=== PATIENT | female | born 1970 | race Caucasian/White ===

== ENCOUNTER 2018-09-25 21:46 | Emergency (ER) | payer OTHER ==
--- NOTE | 2018-09-25 22:19 | ED Physician Documentation ---
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 Patient takes magnesium chloride at night for migraine headaches (PRN). Tonight, her prepared a dose for both of them. He used a bulk powder mix that they purchased online. He did not follow the directions on the label but he did use the directions to calculate what he thought was an individual dose (the directions are for making one liter, with 50-100ml per dose). After they both took the magnesium, he recalculated and realized he had prepared an overdose. By his calculations, they each took over 7 grams. However, when the and I recalculate, the dose they each took is actually 9.9 grams. Patient only c/o mild nausea. Review of Systems Eyes: reports: Reviewed and negative Cardiac: reports: Reviewed and negative Respiratory: reports: Reviewed and negative GI: reports: Nausea. 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: No Smoking Status: Never smoker Does the pt drink ETOH?: No Does the pt have substance abuse?: No PD ED PE NORMAL - Vitals Vital signs reviewed: Yes - General General: Alert and oriented X 3, No acute distress, Well developed/nourished - HEENT HEENT: Moist mucous membranes - Cardiac Cardiac: RRR, No murmur - Respiratory Respiratory: No respiratory distress, Clear bilaterally - Abdomen Abdomen: Soft, Non tender - Neuro Neuro: Alert and oriented X 3, it professional 2-12 intact, No motor deficit, No sensory deficit, Normal speech Eye Opening: Spontaneous Motor: Obeys Commands Verbal: Oriented GCS Score: 15 Results - Vitals Vitals: Vital Signs - 24 hr 09/25/18 09/26/18 21:53 00:03 Temperature 37 C 36.6 C Heart Rate 70 60 Respiratory 18 16 Rate Blood Pressure 122/77 111/70 O2 Saturation 97 96 Oxygen O2 Source Room air - Labs Labs: Laboratory Tests 09/25/18 23:15 Sodium 138 Potassium 3.5 Chloride 105 Carbon Dioxide 27 Anion Gap 6.0 BUN 12 Creatinine 1.1 H Estimated GFR (MDRD) 53 L Glucose 111 H Calcium 9.2 Phosphorus 4.5 Magnesium 2.4 PD MEDICAL DECISION MAKING - ED course Complexity details: reviewed results, re-evaluated patient, considered differential, d/w patient, d/w family ED course: Poison control was contacted and they recommend 2-3 hours observation in ED and can discharge if symptoms are limited to mild GI symptoms. After approximately 3 hours ED observation, patient still only has mild nausea and is comfortable with discharge home. She declines antinauseants Departure - Departure Disposition: 01 Home, Self Care Clinical Impression: Accidental overdose Qualifiers: Encounter type: initial encounter Qualified Code(s): T50.901A - Poisoning by unspecified drugs, medicaments and biological substances, accidental (unintentional), initial encounter Condition: Good Instructions: ED Overdose Accidental Follow-Up: LEONEL XIAO MD [Primary Care Provider] - Discharge Date/Time: 09/26/18 00:11
[2018-09-25 23:43] LABS: CALCIUM 9.2 mg/dL (8.5-10.3); CREATININE 1.1 mg/dL (0.4-1.0); MAGNESIUM 2.4 mg/dL (1.7-2.8); PHOSPHORUS 4.5 mg/dL (2.5-4.6)
[2018-09-26 00:03] VITALS: BP 111/70
== END 2018-09-26 00:11 | disposition home or self-care (01) ==
LOC: ED 21:46
DX: T56.891A Toxic effect of other metals, accidental (unintentional), initial encounter (principal); R11.0 Nausea
CPT/HCPCS: 36415; 80048; 83735; 84100; 99283

== ENCOUNTER 2021-08-02 10:43 | Outpatient (CLI) | payer OTHER ==
--- NOTE | 2021-08-02 14:47 | MRI Report ---
PROCEDURE: Cervical Spine W/O INDICATIONS: Cervicalgia TECHNIQUE: Noncontrast sagittal T1 spin echo and T2 fast spin echo, sagittal STIR, foraminal oblique sagittal T2 fast spin echo, and axial gradient echo or T2 fast spin echo through the cervical spine. COMPARISON: None. FINDINGS: Normal cervical vertebral body height and alignment. A T3 vertebral body hemangioma demonstrates incr eased T1 and T2 signal and characteristic vertebral striated pattern. No suspicious focal marrow sign al abnormality or bone marrow edema. Morphology and signal intensity of the cervical cord. There is n o syrinx the unenhanced prevertebral and paraspinous soft tissues are unremarkable in the absence of IV contrast. C2-C3: Normal in appearance. C3-C4: Normal in appearance. C4-C5: Normal in appearance. C5-C6: Normal in appearance. C6-C7: Normal in appearance. C7-T1: Normal in appearance. IMPRESSION: No or spinal canal stenosis, neural foraminal stenosis, or significant degenerative change. Reviewed by: Stephan Thomas MD on 08/02/2021 2:46 PM PST Approved by: Stephan Thomas MD on 08/02/2021 2:46 PM PST Station ID: [id number]
== END 2021-08-02 10:44 | disposition home or self-care (01) ==
LOC: DI 10:43
PROVIDERS: ATTEND Family Medicine
DX: M54.2 Cervicalgia (principal)

== ENCOUNTER 2022-06-18 12:53 | Outpatient (CLI) | payer OTHER ==
--- NOTE | 2022-06-25 10:05 | Mammography Report ---
BILATERAL DIGITAL SCREENING MAMMOGRAM 3D/2D: 06/18/2022 CLINICAL: Routine screening. Comparison is made to exams dated: 01/19/2019 mammogram, 11/04/2017 mammogram, 10/15/2016 mammogram, and 09/06/2015 mammogram - [facility]. There are scattered areas of fibroglandular density in both breasts (category b / 25%-50% glandular t issue). No significant masses, calcifications, or other findings are seen in either breast. There has been no significant interval change. IMPRESSION: NEGATIVE There is no mammographic evidence of malignancy. A 1 year screening mammogram is recommended. Based on the Tyrer Cuzick model (a risk assessment model) the patients lifetime risk is 6.8% and her 10 year risk is 1.8%. According to the ACR, ACS, and NCCN guidelines, an annual breast MRI exam ree g with mammogram is recommended if the patients lifetime risk is 20% or greater. This exam was interpreted at Station ID: [id number]. NOTE: For mammograms, a report in lay terms will be sent to the patient. Approximately 15% of breast malignancies will not be visualized mammographically. In the management of a palpable breast mass, a negative mammogram must not discourage biopsy of a clinically suspicious lesion. Electronically Signed By: Stephan Thomas M.D., jr/scotty:06/22/2022 11:46:47 ACR BI-RADS Category 1: Negative 3341F PARENCHYMAL PATTERN: (A) - The breast(s) demonstrate(s) scattered fibroglandular densities. BI-RADS CATEGORY: (1) - 1 RECOMMENDATION: (ANNUAL) - Recommend routine annual screening mammography. [id number] 1 year screening LATERALITY: (B)
== END 2022-06-18 12:54 | disposition home or self-care (01) ==
LOC: DI.N 12:53
DX: Z12.31 Encounter for screening mammogram for malignant neoplasm of breast (principal)

== ENCOUNTER 2023-12-10 23:31 | Emergency (ER) | payer OTHER ==
[2023-12-11 00:15] VITALS: BP 121/75
--- NOTE | 2023-12-11 00:47 | XRAY Report ---
PROCEDURE: Chest 2V INDICATIONS: DEEP COUGH X 1.5 WKS TECHNIQUE: 2 views of the chest were acquired. COMPARISON: X-ray ribs 08/31/2014 FINDINGS: Surgical changes and devices: None. Lungs and pleura: Focal masslike opacities are present overlying the left upper as well as right mid dle lobes. Upper lobe focus has a central area of lucency. Mediastinum: Mediastinal contours appear normal. Heart size is normal. Bones and chest wall: No suspicious bony lesions. Overlying soft tissues appear unremarkable. IMPRESSION: Bilateral areas of masslike opacity are identified. These are suspected to represent pneumonia althou gh cavitary lesion in the right upper lobe cannot be excluded. Recommend correlation patient's sympto ms and short interval imaging follow-up to document resolution after appropriate therapy is recommend ed. Reviewed by: Jeannette Madden MD on 12/11/2023 12:45 AM PDT Approved by: Jeannette Madden MD on 12/11/2023 12:45 AM PDT Station ID: [id number]
[2023-12-11] MEDS ORDERED: iohexoL-300 100 ML VIAL ONE (00:54)
[2023-12-11 01:05] LABS: BASOPHILS # (AUTO) 0.1 10^3/uL (0.0-0.1); BASOPHILS % (AUTO) 0.6 %; EOSINOPHILS # (AUTO) 0.3 10^3/uL (0.0-0.7); EOSINOPHILS % (AUTO) 1.5 %; HCT - HEMATOCRIT 40.4 % (37.0-47.0); HGB - HEMOGLOBIN 13.6 g/dL (12.0-16.0); LYMPHOCYTES # (AUTO) 2.6 10^3/uL (1.5-3.5); LYMPHOCYTES % (AUTO) 12.1 %; MEAN CORPUSCULAR HEMOGLOBIN 28.9 pg (27.0-31.0); MEAN CORPUSCULAR HGB CONC 33.7 g/dL (32.0-36.0); MEAN CORPUSCULAR VOLUME 85.8 fL (81.0-99.0); MEAN PLATELET VOLUME 9.3 fL (7.9-10.8); MONOCYTES # (AUTO) 1.8 10^3/uL (0.0-1.0); MONOCYTES % (AUTO) 8.6 %; NEUTROPHILS # (AUTO) 16.2 10^3/uL (1.5-6.6); PLT - PLATELET COUNT 384 10^3/uL (130-450); RED BLOOD COUNT 4.71 10^6/uL (4.20-5.40); RED CELL DISTRIBUTION WIDTH 13.6 % (12.0-15.0); WHITE BLOOD COUNT 21.3 x10^3/uL (4.8-10.8)
[2023-12-11 01:28] LABS: ALBUMIN 3.8 g/dL (3.2-5.5); BILIRUBIN,TOTAL 0.5 mg/dL (0.2-1.0); CALCIUM 9.5 mg/dL (8.5-10.3); CREATININE 0.8 mg/dL (0.6-1.3); POTASSIUM 3.8 mmol/L (3.5-4.5); TOTAL PROTEIN 7.8 g/dL (6.4-8.9)
[2023-12-11 01:38] LABS: DIFFERENTIAL COMMENT MANUAL=AUTO DIFF; PLATELET ESTIMATE, MANUAL NORMAL (130-450,000) (NORMAL); RBC MORPHOLOGY (MULTIPLE) NORMAL APPEARANCE (NORMAL)
[2023-12-11] MEDS: iohexoL-300 100 ML VIAL IVP ONE (02:05)
--- NOTE | 2023-12-11 02:09 | CT Report ---
PROCEDURE: Chest W INDICATIONS: MASSLIKE OPACITIES ON CXR CONTRAST: Omni 300, 100mls TECHNIQUE: After the administration of intravenous contrast, a CT scan of the chest was performed. Images were recorded and evaluated at appropriate window settings. Reformats: axial MIP of the chest, coronal and sagittal. For radiation dose reduction, the following was used: automated exposure control, adjustme nt of mA and/or kV according to patient size. COMPARISON: Chest x-ray 12/11/2023 FINDINGS: Image quality: Diagnostic. Chest wall and lower neck: No thyroid nodule which requires sonographic follow up. No axillary or sup raclavicular adenopathy by size. Lungs and pleura: As identified on chest x-ray, there are consolidative opacities identified within t he lungs bilaterally. The largest is present in the right lower lobe. A second prominent focus is pre sent within the lingula. Air bronchograms are present within the right lower lobe lesion. Focus in th e lingula also demonstrates air bronchograms. There are several small foci of air identified within t he lesion the largest demonstrating a rounded focus measuring 1.1 cm. There is no surrounding rim enh ancement. Mediastinum: Heart size is normal. No pericardial effusion. No large vessel abnormality. Mediastinal and hilar adenopathy is present. Bones: No aggressive osseous abnormality. Upper Abdomen: Unremarkable. IMPRESSION: Consolidative opacities within the lungs bilaterally with air bronchograms most suggestive of infecti on/inflammation such as pneumonia. Small areas of air identified within the lingular focus. These cou ld represent areas of cavitation, or may represent confluent areas of air bronchograms appearing more prominent. There is no enhancing focus to suggest abscess or empyema on the basis of current exam. H owever, recommend correlation patient's symptoms and short interval imaging follow-up to document res olution after appropriate therapy. Reviewed by: Jeannette Madden MD on 12/11/2023 2:08 AM PDT Approved by: Jeannette Madden MD on 12/11/2023 2:08 AM PDT Station ID: [id number]
--- NOTE | 2023-12-11 02:21 | ED Physician Documentation ---
History of Present Illness - Stated complaint Stated Complaint: SOA - Chief complaint Chief Complaint: General - History obtained from History obtained from: Patient, Family - Additonal information Additional information: 53-year-old female with no reported past medical history presents by private vehicle from home for approximately 1.5 weeks of deep, nonproductive cough and bodyaches. Patient states that symptoms started with an upper respiratory infection and developed into her subsequent symptoms. Has been taking ibuprofen cold and flu for symptoms with minimal relief. Patient states that when she takes a deep breath it causes her to cough, and she subsequently has chest wall pain from all the coughing she has done. Review of Systems Constitutional: reports: Fever, Chills Cardiac: denies: Chest pain / pressure, Palpitations Respiratory: reports: Dyspnea, Cough. 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 - Present Medications Home Medications: Ambulatory Orders Medication Instructions Recorded Confirmed Spironolactone 50 mg PO BID 09/08/14 12/11/23 Amox/Clav 875/125 [Augmentin] 1 each PO Q12H #10 tablet 12/11/23 DULoxetine [Cymbalta] 30 mg PO DAILY 12/11/23 12/11/[address] [Depakote Dr] 125 mg PO DAILY 12/11/23 12/11/23 Doxycycline Hyclate 100 mg PO BID #10 cap 12/11/23 ZOLMitriptan [Zomig] 5 mg PO PRN PRN 12/11/23 12/11/23 lamoTRIgine [Lamictal] 200 mg PO DAILY 12/11/23 12/11/23 - Allergies Allergies/Adverse Reactions: Allergies Allergy/AdvReac Type Severity Reaction Status Date / Time No Known Drug Allergies Allergy Verified 12/10/23 23:37 - Social History Does the pt smoke?: No Smoking Status: Never smoker Does the pt drink ETOH?: No Does the pt have substance abuse?: No - Immunizations Immunizations are current?: Yes - POLST Patient has POLST: No PD ED PE NORMAL - Vitals Vital signs reviewed: Yes - General General: Alert and oriented X 3, No acute distress, Well developed/nourished - HEENT HEENT: Atraumatic - Cardiac Cardiac: RRR, Strong equal pulses - Respiratory Respiratory: No respiratory distress, Clear bilaterally - Abdomen Abdomen: Soft, Non tender, Non distended - Derm Derm: Normal color, Warm and dry, No rash - Extremities Extremities: No deformity, No tenderness to palpate, Normal ROM s pain - Neuro Neuro: Alert and oriented X 3, exterior interior specialist 2-12 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, No motor deficit, Normal speech Results - Vitals Vitals: Vital Signs - 24 hr 12/10/23 12/11/23 12/11/23 23:37 00:12 02:00 Temperature 37.8 C Heart Rate 95 74 68 Respiratory 16 18 16 Rate Blood Pressure 149/83 H 121/75 O2 Saturation 98 97 95 Oxygen O2 Source Room air - Labs Labs: Laboratory Tests 12/11/23 12/11/23 01:01 01:01 WBC 21.3 H RBC 4.71 Hgb 13.6 Hct 40.4 MCV 85.8 MCH 28.9 MCHC 33.7 RDW 13.6 Plt Count 384 MPV 9.3 Neut # (Auto) 16.2 H Lymph # (Auto) 2.6 [place] # (Auto) 1.8 H Eos # (Auto) 0.3 Baso # (Auto) 0.1 Absolute Nucleated RBC 0.00 Band Neuts % (Manual) Not Reportable Abnorm Lymph % (Manual) Not Reportable Nucleated RBC % 0.0 Neutrophils # (Manual) Not Reportable Lymphocytes # (Manual) Not Reportable Monocytes # (Manual) Not Reportable Eosinophils # (Manual) Not Reportable Basophils # (Manual) Not Reportable Differential Comment MANUAL=AUTO DIFF Platelet Estimate NORMAL (130-450,000) RBC Morph Micro Appear NORMAL APPEARANCE Sodium 136 Potassium 3.8 Chloride 98 L Carbon Dioxide 28 Anion Gap 10.0 BUN 14 Creatinine 0.8 Estimated GFR (MDRD) 74 L Glucose 102 Calcium 9.5 Total Bilirubin 0.5 AST 28 ALT 38 Alkaline Phosphatase 75 Total Protein 7.8 Albumin 3.8 Globulin 4.0 Albumin/Globulin Ratio 1.0 PD Medical Decision Making - ED course Complexity details: reviewed results, re-evaluated patient, considered differential, d/w patient ED course: Nontoxic patient presenting with 1 and half weeks of symptoms. No acute distress, saturating well on room air. Lungs seem clear to auscultation bilaterally. Will order chest x-ray. Chest x-ray shows bilateral asymmetric infiltrates. There appears to be a cavitary component, plan to order laboratory work and CT imaging for further assessment to ensure there are no underlying masses. Laboratory work is significant for WBC count 21, other laboratory work is within normal limits. Port/PSI score 45, indicating appropriate candidate for outpatient antibiotics. Out of precaution blood cultures were drawn and sent to lab. Since pharmacies are closed patient was given initial dose of IV antibiotics in the emergency department and Augmentin and doxycycline sent to pharmacy of choice. Patient was counseled on all lab and imaging findings. Recommended expectorants to help reduce cough. Also recommended close PCP follow-up to ensure resolution of her pneumonia. Departure - Departure Disposition: 01 Home, Self Care Clinical Impression: Pneumonia Qualifiers: Pneumonia type: due to unspecified organism Laterality: bilateral Lung location: unspecified part of lung Qualified Code(s): J18.9 - Pneumonia, unspecified organism Condition: Stable Instructions: ED Pneumonia Adult Prescriptions: Amox/Clav 875/125 [Augmentin] 1 each PO Q12H #10 tablet Doxycycline Hyclate 100 mg PO BID #10 cap Comments: Your chest x-ray and CT scan show that you have what appears to be bacterial pneumonia. Finish all of your antibiotics as prescribed. Take Mucinex to help loosen your cough. It may take a day or 2 for the antibiotics to fully take effect, however if you are noticing no improvement or feeling worse, or have worsening breathing please return to the emergency department for repeat evaluation. Please make sure that you follow-up with your primary care physician to ensure r esolution of your pneumonia. Forms: PCP List
[2023-12-11 02:23] VITALS: O2SAT 95
[2023-12-11] MEDS ORDERED: cefTRIAXone 2 GM VIAL ONE (02:40)
[2023-12-11] MEDS: cefTRIAXone 2 GM in SODIUM CHLORIDE 0.9% MINIBAG 100 ML IV STA (02:46)
[2023-12-11] MEDS: AZITHROMYCIN 250 MG TABLET PO STA (02:46)
== END 2023-12-11 03:29 | disposition home or self-care (01) ==
LOC: ED 23:31
DX: J18.9 Pneumonia, unspecified organism (principal); F32.A Depression, unspecified
CPT/HCPCS: 36415; 71046; 71260; 80053; 85025; 87040; 87154; 96365; 99284; A9270; Q9967

== ENCOUNTER 2023-12-11 19:11 | Emergency (ER) | payer OTHER ==
[2023-12-11] MEDS: AMPICILLIN/SULBACTAM 3 GM in SODIUM CHLORIDE 0.9% MINIBAG 100 ML IV STA (20:27)
[2023-12-11] MEDS: SODIUM CHLORIDE 0.9% 1,000 ML IV STA (20:28)
--- NOTE | 2023-12-11 20:32 | ED Physician Documentation ---
History of Present Illness - Stated complaint Stated Complaint: ABNORMAL LABS - Chief complaint Chief Complaint: General - History obtained from History obtained from: Patient, Family - Additonal information Additional information: The patient comes to the emergency department with chief complaint of positive blood cultures after being seen yesterday for cough, fever, and feeling of general malaise. At that time she was diagnosed with pneumonia and was prescribed Augmentin. She also received an IV dose of antibiotics in the emergency department. The patient states she is been able to take one of her Augmentin doses and that her lungs feel little less tight than they did, but that otherwise, she feels about the same as yesterday. She last had a fever this morning. She has had some intermittent left lower quadrant abdominal pain for the last 2 weeks but otherwise, denies current GI symptoms. Her culture was positive for Strep pyogenes, but sensitivities still pending. 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 - Present Medications Home Medications: Ambulatory Orders Medication Instructions Recorded Confirmed Spironolactone 50 mg PO BID 09/08/14 12/11/23 Amox/Clav 875/125 [Augmentin] 1 each PO Q12H #10 tablet 12/11/23 DULoxetine [Cymbalta] 30 mg PO DAILY 12/11/23 12/11/23 Divalproex [Michael Gracia] 125 mg PO DAILY 12/11/23 12/11/23 Doxycycline Hyclate 100 mg PO BID #10 cap 12/11/23 HYDROcod/ACETAM 5/325 [Curlew 5/325] 1 - 2 tablet PO Q6H PRN #10 tablet 12/11/23 ZOLMitriptan [Zomig] 5 mg PO PRN PRN 12/11/23 12/11/23 lamoTRIgine [Lamictal] 200 mg PO DAILY 12/11/23 12/11/23 - Allergies Allergies/Adverse Reactions: Allergies Allergy/AdvReac Type Severity Reaction Status Date / Time No Known Drug Allergies Allergy Verified 12/11/23 19:26 - Social History Does the pt smoke?: No Smoking Status: Never smoker Does the pt drink ETOH?: No Does the pt have substance abuse?: No - Immunizations Immunizations are current?: Yes - POLST Patient has POLST: No PD ED PE NORMAL - Vitals Vital signs reviewed: Yes - General General: Alert and oriented X 3, No acute distress, Well developed/nourished - HEENT HEENT: Atraumatic, PERRL, EOMI, Moist mucous membranes - Neck Neck: Supple, no meningeal sign - Cardiac Cardiac: RRR, No murmur - Respiratory Respiratory: No respiratory distress, Clear bilaterally - Abdomen Abdomen: Soft, Non distended, Other (Mild left lower quadrant tenderness, no rebound or guarding.) - Derm Derm: Normal color, Warm and dry, No rash - Extremities Extremities: No deformity - Neuro Neuro: Other (Grossly intact, alert) - Psych Psych: Normal mood, Normal affect Results - Vitals Vitals: Oxygen O2 Source Room air - EKG (time done) CXR EKG releavant findings:: EKG personally interpreted by author of this note. Relevant findings are: - Labs Labs: Laboratory Tests 12/11/23 12/11/23 12/11/23 20:23 20:23 20:23 WBC 14.6 H RBC 4.82 Hgb 13.6 Hct 42.2 MCV 87.6 MCH 28.2 MCHC 32.2 RDW 13.6 Plt Count 399 MPV 9.1 Neut # (Auto) 10.5 H Lymph # (Auto) 2.1 [place] # (Auto) 1.3 H Eos # (Auto) 0.4 Baso # (Auto) 0.1 Absolute Nucleated RBC 0.00 Nucleated RBC % 0.0 Sodium 137 Potassium 3.5 Chloride 98 L Carbon Dioxide 28 Anion Gap 11.0 BUN 14 Creatinine 0.8 Estimated GFR (MDRD) 74 L Glucose 93 Lactic Acid 0.8 Calcium 9.0 Total Bilirubin 0.4 AST 18 ALT 29 Alkaline Phosphatase 74 Total Protein 7.2 Albumin 3.6 Globulin 3.6 Albumin/Globulin Ratio 1.0 Lipase < 10 L - Rads (name of study) CT abd/pelvis Relevant Findings:: Final report received, See rad report (diverticulosis without diverticulitis. No acute findings.) CXR Relevant Findings:: Final report received, See rad report (slight progression of pneumonia) PD Medical Decision Making - ED course Complexity details: reviewed old records, reviewed results, re-evaluated patient, considered differential, d/w patient ED course: The patient had normal vital signs and overall, did not appear toxic, but given that she had had positive blood cultures for strep pyogenes and a significant elevation of her white blood cell count yesterday at 21,000, I felt she should be worked up with repeat labs and given an IV dose of Unasyn in the emergency department. Patient complained of some right lower chest pain and left lower quadrant pain and was given Toradol and a small dose of Dilaudid for this as well. She was also given IV fluids. The pt's WBC level was much better today, and her lactic acid level was normal. Her CXR showed slight progression, but this is expected to turn around with more antibiotics, given that the pt has only had 2 doses prior to coming here. CT abd/pelvis was performed to address the pt's LLQ pain, and was unremarkable for any acute findings. The pt's vital signs are normal, and show no signs of physical stress. I d/w pt that we can observe her overnight, but really, given the marked improvement and lack of worsening in the past 24 hours, she is most likely on the right antibiotics and needs more doses. As such, I think it is also reasonable for her to continue treatment at home. The pt is agreeable to this plan. We have discussed having a very low threshold for return, and sx which should prompt immediate return. Departure - Departure Disposition: 01 Home, Self Care Clinical Impression: Bacteremia Condition: Stable Instructions: ED Pneumonia Adult Prescriptions: HYDROcod/ACETAM 5/325 [Curlew 5/325] 1 - 2 tablet PO Q6H PRN #10 tablet PRN Reason: Pain Comments: Your blood cultures came back positive for bacteria in your blood, but your vital signs are normal, your white blood cell count has greatly improved, and your sepsis markers are normal. As such, you are stable for discharge home at this point in time. You have been given a total of 2 doses of IV antibiotics in the last 24 hours as well as your dose of oral antibiotics. You should continue your oral antibiotics starting tomorrow morning and finish the entire course as directed. As long as you are gradually improving, you may continue to take your home treatments. However, if you at all feel that you are worsening, you should return to the emergency department immediately. You will most likely have fevers for the next several days on and off, but these would be expected to ultimately resolve as the infection resolves. A prescription for pain medication has been electronically transmitted to the [facility] pharmacy in [place]. Please pick this up in the morning. Forms: PCP List Discharge Date/Time: 12/11/23 22:43
[2023-12-11 20:35] LABS: BASOPHILS # (AUTO) 0.1 10^3/uL (0.0-0.1); BASOPHILS % (AUTO) 0.6 %; EOSINOPHILS # (AUTO) 0.4 10^3/uL (0.0-0.7); EOSINOPHILS % (AUTO) 2.7 %; HCT - HEMATOCRIT 42.2 % (37.0-47.0); HGB - HEMOGLOBIN 13.6 g/dL (12.0-16.0); LYMPHOCYTES # (AUTO) 2.1 10^3/uL (1.5-3.5); MEAN CORPUSCULAR HEMOGLOBIN 28.2 pg (27.0-31.0); MEAN CORPUSCULAR HGB CONC 32.2 g/dL (32.0-36.0); MEAN CORPUSCULAR VOLUME 87.6 fL (81.0-99.0); MEAN PLATELET VOLUME 9.1 fL (7.9-10.8); MONOCYTES # (AUTO) 1.3 10^3/uL (0.0-1.0); NEUTROPHILS # (AUTO) 10.5 10^3/uL (1.5-6.6); NEUTROPHILS % (AUTO) 71.5 %; PLT - PLATELET COUNT 399 10^3/uL (130-450); RED BLOOD COUNT 4.82 10^6/uL (4.20-5.40); RED CELL DISTRIBUTION WIDTH 13.6 % (12.0-15.0); WHITE BLOOD COUNT 14.6 x10^3/uL (4.8-10.8)
[2023-12-11] MEDS ORDERED: iohexoL-300 100 ML VIAL ONE (20:45)
[2023-12-11] MEDS: HYDROmorphone 1 MG/ML CARPUJECT IVP STA (20:46)
[2023-12-11] MEDS: KETOROLAC 30 MG/ML VIAL IVP STA (20:47)
[2023-12-11 20:52] LABS: ALBUMIN 3.6 g/dL (3.2-5.5); ALKALINE PHOSPHATASE 74 IU/L (42-121); ALT ALANINE AMINOTRANSFERASE 29 IU/L (10-60); AST ASPARTATE AMINOTRANSFERASE 18 IU/L (10-42); BILIRUBIN,TOTAL 0.4 mg/dL (0.2-1.0); BUN - BLOOD UREA NITROGEN 14 mg/dL (6-20); CARBON DIOXIDE - CO2 28 mmol/L (21-32); CHLORIDE 98 mmol/L (101-111); CREATININE 0.8 mg/dL (0.6-1.3); GFR - MDRD 74 (>89); GLUCOSE 93 mg/dL (74-104); POTASSIUM 3.5 mmol/L (3.5-4.5); SODIUM 137 mmol/L (135-145); TOTAL PROTEIN 7.2 g/dL (6.4-8.9)
[2023-12-11 20:53] LABS: LIPASE < 10 U/L (11-82)
[2023-12-11] MEDS: iohexoL-300 100 ML VIAL IVP ONE (21:09)
--- NOTE | 2023-12-11 21:17 | XRAY Report ---
PROCEDURE: Chest 1V INDICATIONS: pneumonia TECHNIQUE: One view of the chest was acquired. COMPARISON: Chest x-ray 12/11/2023 at 12:40 AM. FINDINGS: Surgical changes and devices: None. Lungs and pleura: Bilateral pulmonary opacities appearing similar on the right and slightly more pro minent in the left compared to prior exam. Otherwise appearance is unchanged including mild appearanc e of cavitation in the left upper lesion. Mediastinum: Mediastinal contours appear normal. Heart size is normal. Bones and chest wall: No suspicious bony lesions. Overlying soft tissues appear unremarkable. IMPRESSION: Bilateral pulmonary opacities appearing slightly more prominent in the left upper lobe compared to pr ior exam. As previously identified, these are highly suspicious for infection/pneumonia and interval follow-up to document resolution is recommended. Reviewed by: Jeannette Madden MD on 12/11/2023 9:16 PM PDT Approved by: Jeannette Madden MD on 12/11/2023 9:16 PM PDT Station ID: [id number]
--- NOTE | 2023-12-11 21:23 | CT Report ---
PROCEDURE: Abdomen/Pelvis W INDICATIONS: LLQ abd pain, fever CONTRAST: 100ml [id number] TECHNIQUE: After the administration of intravenous contrast, a CT scan of the abdomen and pelvis was performed. Images were recorded and evaluated at appropriate window settings. Reformats: coronal and sagittal. F or radiation dose reduction, the following was used: automated exposure control, adjustment of mA and /or kV according to patient size. COMPARISON: CT chest 12/11/2023, CT abdomen pelvis 09/08/2014 FINDINGS: Image quality: Diagnostic. Lower chest: Minimal visualization of the inferior aspect of the right lower lobe consolidative opaci ty, unchanged compared to prior exam. Liver: No solid mass. 1.4 cm right hepatic low-attenuation focus series 2 image 20 is present. This i s new compared to 2015. Gallbladder and biliary tree: Luminal stones without wall thickening. Spleen: No splenomegaly. Pancreas: No pancreatic ductal dilation. Adrenals: No adrenal nodule. Kidneys and ureters: No hydronephrosis. No renal cystic lesion which requires follow up. No solid mas s. Simple left renal cyst. Stomach, bowel and peritoneum: No bowel distension. No pathologic free fluid. Colonic diverticula are present. No inflammatory change. Lymph nodes: No central or retroperitoneal adenopathy. Vessels: No infrarenal aortic aneurysm. PELVIS Reproductive organs: Unremarkable. Bladder: No abnormal wall thickening, accounting for underdistention. Pelvic lymph nodes: No pelvic adenopathy by size criteria. Bones: No aggressive osseous abnormality. Other: No significant ventral or inguinal hernia. IMPRESSION: Cholelithiasis without imaging evidence of cholecystitis. Diverticulosis. No visualized inflammatory changes suggest diverticulitis. Low-attenuation focus indeterminate within the right hepatic lobe. This could represent hemangioma or complex cyst. Incompletely visualized portion of the right lower lobe consolidation most consistent with infection/ pneumonia. Reviewed by: Jeannette Madden MD on 12/11/2023 9:22 PM PDT Approved by: Jeannette Madden MD on 12/11/2023 9:22 PM PDT Station ID: [id number]
[2023-12-11] MEDS: HYDROcod/ACETAM 5/325 MG TABLET PO STA (22:35)
[2023-12-11 22:48] VITALS: BP 116/82; O2SAT 97
== END 2023-12-11 22:43 | disposition home or self-care (01) ==
LOC: ED 19:11
DX: J18.9 Pneumonia, unspecified organism (principal); R78.81 Bacteremia; F32.A Depression, unspecified; Z79.899 Other long term (current) drug therapy
CPT/HCPCS: 36415; 71045; 71046; 71260; 74177; 80053; 83605; 83690; 85025; 87040; 87077; 87154; 87181; 96365; 96375; 99284; 99285; A9270; J1170; Q9967

== ENCOUNTER 2024-02-08 12:39 | Outpatient (CLI) | payer OTHER ==
--- NOTE | 2024-02-09 06:46 | Ultrasound Report ---
PROCEDURE: Soft Tissue Head or Neck INDICATIONS: THYROID NODULE TECHNIQUE: Real-time scanning was performed of the thyroid gland, with image documentation. COMPARISON: None FINDINGS: Right: Thyroid lobe measures 5.3 x 1.4 x 1.5 cm. Left: Thyroid lobe measures 4.4 x 1 0.1, 0.3 cm Isthmus: 0.2 cm thick. Echotexture: Homogeneous. Nodule number: One Location: Right superior pole Size: 0.6 x 0.7 x 0.6 cm cm. Composition: Solid (2 points). Echogenicity: Hypoechoic (2 points). Shape: wider than tall (0 points). Margins: Smooth (0 points). Echogenic foci: Punctate echogenic foci (3 points). Total points: 7 ACR TI-RADS category: TI-RADS 5: Highly suspicious. Nodule number: Two Location: Right medial/inferior pole Size: 0.9 x 0.7 x 1.0 cm. Composition: Solid (2 points). Echogenicity: Isoechoic (1 point). Shape: wider than tall (0 points). Margins: Smooth (0 points). Echogenic foci: None (0 points). Total points: 3 ACR TI-RADS category: TI-RADS 3: Mildly suspicious. IMPRESSION: A couple of thyroid nodules: Thyroid nodule #1 is highly suspicious but does not meet size criteria for biopsy. Yearly follow-up f or a total of 5 years is recommended. Thyroid nodule #2 is mild suspicion pattern but does not meet size criteria for follow-up. ACR TI-RADS definitions and recommendations: TI-RADS 1 (benign): 0 points. FNA not needed. TI-RADS 2 (not suspicious): 2 points. FNA not needed. TI-RADS 3 (mildly suspicious): 3 points. "FNA if 2.5 cm or larger, follow up if 1.5 cm or larger (at 1, 3, and 5 years). TI-RADS 4 (moderately suspicious): 4-6 points. "FNA if 1.5 cm or larger, follow up if 1 cm or larger (at 1, 2, 3, and 5 years). TI-RADS 5 (highly suspicious): 7 points or more. "FNA if 1 cm or larger, follow up if 0.5 cm or larger (every year for 5 years). Reviewed by: Eduard Whalen MD on 02/09/2024 6:45 AM PDT Approved by: Eduard Whalen MD on 02/09/2024 6:45 AM PDT Station ID: [id number]
== END 2024-02-08 12:40 | disposition home or self-care (01) ==
LOC: DI 12:39
PROVIDERS: ATTEND Nurse Practitioner Family
DX: E04.2 Nontoxic multinodular goiter (principal)

== ENCOUNTER 2024-04-09 08:00 | Outpatient (CLI) | payer OTHER ==
[2024-04-09 21:01] LABS: BACTERIAL VAGINOSIS DNA NEGATIVE (NEGATIVE); CANDIDA GLABRATA DNA NEGATIVE (NEGATIVE); CANDIDA GROUP DNA NEGATIVE (NEGATIVE); CANDIDA KRUSEI DNA NEGATIVE (NEGATIVE); TRICHOMONAS VAGINALIS DNA NEGATIVE (NEGATIVE)
== END 2024-04-09 23:59 | disposition home or self-care (01) ==
LOC: LAB.WC 08:00
PROVIDERS: ATTEND Obstetrics & Gynecology
DX: N89.8 Other specified noninflammatory disorders of vagina (principal)
CPT/HCPCS: 81514